=== PATIENT | male | born 2005 | race Caucasian/White ===

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

== ENCOUNTER 2025-10-15 10:12 | Emergency (ER) | payer BC, SELFPAY ==
[2025-10-15] MEDS ORDERED: Acetaminophen 500 MG TAB ONE (10:25)
[2025-10-15 10:41] LABS: Glucose, Urine (Dipstick) Normal (Negative); Leukocyte 25 (Negative); Protein, Urine (Dipstick) 100 mg/dl (Neg-Trace); Specific Gravity, Urine 1.010 (1.005-1.030)
[2025-10-15 10:43] LABS: Platelet Count 143 10x3/uL (150-450)
[2025-10-15 10:45] LABS: Hematocrit 44.9 % (38.8-50.0); Hemoglobin 15.8 g/dL (13.5-17.5); Mean Corpuscular Hemoglobin 29.8 pg (27.0-33.0); Mean Corpuscular Volume 84.6 fL (81.2-95.1); Red Blood Cell (RBC) Count 5.31 10x6/uL (4.32-5.72); White Blood Cell (WBC) Count 6.73 10x3/uL (3.5-10.5)
[2025-10-15 10:55] LABS: ALT (SGPT) 13 U/L (Less than 45); AST (SGOT) 21 U/L (11-34); Albumin 4.3 g/dL (3.1-4.5); Alkaline Phosphatase 62 U/L (50-130); Anion Gap 14 mmol/L (10-20); BUN (Urea Nitrogen) 15 mg/dL (8.9-20.6); Bilirubin, Total 0.3 mg/dL (0.3-1.2); CK (CPK) 94 U/L (30-200); Calc. Creatinine Clearance 0 mL/min (70-130); Calcium 9.1 mg/dL (7.8-10.44); Carbon Dioxide 24 mmol/L (22-29); Chloride 100 mmol/L (98-107); Globulin 3.2 g/dL (2.4-3.5); Glucose 117 mg/dL (70-105); Lipase 30 U/L (8-78); Potassium 4.0 mmol/L (3.5-5.1); Sodium 134 mmol/L (136-145)
[2025-10-15 10:57] LABS: Bacteria/HPF Rare-Few HPF (None Seen); CAUTI Indications for Culture Pelvic or flank pain; Mucous/LPF Rare LPF (<2+); RBC/HPF 21-50 HPF (0-3); Urine Culture Reflex No No; WBC/HPF 0-3 HPF (0-3)
[2025-10-15 11:06] LABS: #Basophils Less than 0.03 10x3/uL (0.0-0.2); #Eosinophils Less than 0.03 10x3/uL (0.0-0.5); #Monocytes 0.53 10x3/uL (0.0-1.1); #Neutrophils 5.70 10x3/uL (1.5-8.4); %Basophils 0.3 % (0.0-2.0); %Eosinophils 0.0 % (0.0-6.0); %Lymphocytes 8.6 % (18.0-47.0); %Monocytes 7.7 % (0.0-10.0); %Neutrophils 83.1 % (40.0-75.0); MDiff Complete? YES
== END 2025-10-15 11:41 | disposition home or self-care (01) ==
LOC: CSHERS 10:12
DX: J10.1 Influenza due to other identified influenza virus with other respiratory manifestations (principal); N13.30 Unspecified hydronephrosis
CPT/HCPCS: 74176; 80053; 81001; 82550; 83605; 83690; 85025; 87428